=== PATIENT | female | born 1965 | race African-American/Black ===

== ENCOUNTER 2022-07-20 19:05 | Inpatient (IN) | payer OTHER, SELFPAY ==
--- NOTE | ~2022-07-20 | CT_ITS ---
EXAMINATION: CT head for stroke CLINICAL INFORMATION: Reason for Exam l Facial droop depression COMPARISON: None. TECHNIQUE: Contiguous axial imaging was performed from the skull base to vertex without intravenous contrast. Sagittal and coronal reformatted images were obtained. This CT examination was performed using dose optimization techniques as appropriate, variously including the following: * Automated exposure control * Adjustment of mA and/or kV according to patient size (this includes techniques or standardized protocols for targeted exams where dose is matched to indication/reason for exam; i.e. extremities or head) Use of iterative reconstruction technique DLP: 674 mGy-cm FINDINGS: There is asymmetric parenchymal hypodensity involving subcortical white matter in the right parietal lobe (series 5 image 25) without loss of barboza-white matter differentiation. Small hypodensity measuring near fluid density in the right central cassie is favored to be chronic and represent a chronic lacunar infarct. No acute osseous or soft tissue abnormality. The mastoid air cells and visualized portions of the paranasal sinuses are well aerated. There is no evidence of acute intracranial hemorrhage or territorial infarction. Bilateral basal ganglia mineralization. No abnormal mass effect or midline shift is seen. Barboza to white matter differentiation is well preserved. No extra-axial fluid collections are identified. No hydrocephalus. No significant volume loss. CT/CT head for stroke IMPRESSION: 1. No acute intracranial hemorrhage 2. Asymmetric hypodensity involving the right parietal subcortical white matter without loss of barboza-white matter differentiation. This may reflect an area of chronic microvascular ischemic white matter injury, although evolving acute ischemia is not completely excluded on the basis of this examination. If there is persistent concern for acute ischemia, consider further assessment with a noncontrast MRI of the brain 3. Small hypodensity in the central cassie likely represents a chronic lacunar infarct. Above impression was communicated to Dr. Alvarado on 07/20/2022 at 7:28 PM
--- NOTE | ~2022-07-20 | CT_ITS ---
EXAMINATION: CT ANGIOGRAM HEAD CT ANGIOGRAM NECK CLINICAL INFORMATION: Reason for Exam l facial droop COMPARISON: Earlier same day noncontrast head CT TECHNIQUE: Initial noncontrast golf cart maker imaging of the head and neck was performed. Comparison is made with noncontrast head CT from earlier today. Test bolus sequences followed by intravenous administration 70 mL of Omnipaque 350. Helical imaging was performed in the axial plane from the aortic arch to the skull vertex. Delayed postcontrast imaging of the head was also performed. The data was processed at the electronic technologist's workstation for generation of MIP sequences. Angled MIPs and volume rendered reformatted images were also generated at an offline 3D workstation. Stenoses are assessed in accordance with NASCET criteria unless otherwise indicated. DLP: 1348 mGy-cm This CT examination was performed using dose optimization techniques as appropriate, variously including the following: *Automated exposure control. *Adjustment of mA and/or kV according to patient size (this includes techniques or standardized protocols for targeted exams where dose is matched to indication/reason for exam; i.e. extremities or head). *Use of iterative reconstruction technique. FINDINGS: CT Head: Please refer to report from immediately preceding noncontrast head CT. No abnormal intracranial enhancement. CT Neck: There is enlargement of the thyroid gland with several subcentimeter hypodense nodules. The remaining cervical soft tissues are within normal limits. Moderate multilevel cervical spondylosis. 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 Maxilla and mandible are nearly edentulous with multiple periapical lucencies. CT Upper Chest: There is centrilobular and paraseptal pulmonary emphysema. The upper mediastinum is within normal limits. Neck CTA: Aortic Arch: Normal contour and caliber. Two vessel branching pattern of the arch with left common carotid artery arising from the brachiocephalic trunk. Great Vessel Origins: No significant stenosis of the branch origins. Right Common Carotid Artery: No focal stenosis or occlusion. Cervical Right Internal Carotid Artery: Mild calcific atherosclerotic disease of the carotid bulb and proximal internal carotid artery without flow-limiting stenosis. Left Common Carotid Artery: No focal stenosis or occlusion. Cervical Left Internal Carotid Artery: Normal opacification without focal stenosis or occlusion. Cervical Right Vertebral Artery: Mild to moderate short segment stenosis of the distal V1 segment. No other significant narrowing or occlusion. Cervical Left Vertebral Artery: Mild to moderate short segment stenosis of the distal V1 segment. No other significant narrowing or occlusion. Brain CTA: Intracranial Internal Carotid Arteries: Calcific atherosclerotic disease of the intracranial internal carotid arteries without occlusion or flow-limiting stenosis. Right Anterior Cerebral Artery: Normal A1 segment. Normal opacification of the distal MAURO segments. Left Anterior Cerebral Artery: Normal A1 segment. Normal opacification of the distal MAURO segments. Anterior Communicating Artery: Normal. Right Middle Cerebral Artery: Normal M1 segment of the MCA without focal stenosis or occlusion. Normal arborization of the distal segments. Left Middle Cerebral Artery: Normal M1 segment of the MCA without focal stenosis or occlusion. Normal arborization of the distal segments. Right Vertebral Artery: Normal V4 segment. Left Vertebral Artery: Normal V4 segment. Basilar Artery: Normal without focal stenosis or occlusion. Normal appearance of the proximal superior cerebellar arteries. Right Posterior Cerebral Artery: Normal P1 segment. Normal opacification of the distal LAND TITLE EXAMINER segments. Left Posterior Cerebral Artery: Normal P1 segment. Normal opacification of the distal LAND TITLE EXAMINER segments. Normal opacification of the superior sagittal, straight, transverse, and sigmoid sinuses. CT/CT angio head neck stroke IMPRESSION: 1. No arterial high grade stenosis or large vessel occlusion in the head or neck. 2. Thyromegaly containing several subcentimeter hypodense nodules. Correlate with thyroid function tests and thyroid ultrasound Impression #[address] Alvarado on 07/20/2022 at 7:38 PM
--- NOTE | 2022-07-20 19:09 | ECG_ITS ---
Test Reason : STROKE Blood Pressure : / mmHG Vent. Rate : 059 BPM Atrial Rate : 059 BPM P-R Int : 178 ms QRS Dur : 086 ms QT Int : 442 ms P-R-T Axes : 067 -10 041 degrees QTc Int : 437 ms Sinus bradycardia Possible Left atrial enlargement Septal infarct (cited on or before 22-OCT-2014) Abnormal ECG When compared with ECG of 22-OCT-2014 03:51, No significant changes seen Referred By: Sander Sesay Electronically Signed By:МАРИНА WALLACE MD
[2022-07-20 19:13] LABS: Prothrombin Time Whole Bld POC 13.1 sec (11.1-13.5); ~PT, ~INR - Anti Coag Clinic 1.1 (0.9-1.1)
[2022-07-20 19:15] VITALS: BP 182/108; PULSE 113; O2SAT 95
[2022-07-20 19:15] LABS: Glucose, Whole Blood 86 mg/dL (60-115)
[2022-07-20 19:22] LABS: MANUAL DIFF FLAG NO
[2022-07-20 19:24] LABS: Basophils Percent Auto 0.8 % (0-2); Eosinophils Absolute Auto 0.1 X10*3/uL (0.0-0.4); Eosinophils Percent Auto 1.3 % (0-4); Hematocrit 40.9 % (37.0-47.0); Hemoglobin 13.6 g/dl (12.0-16.0); Imm Gran Abs Auto 0.01 X10*3/uL (0.00-0.03); Imm Gran Pct Auto 0.3 % (0.0-0.4); Lymphocytes Absolute Auto 1.9 X10*3/uL (1.2-4.9); Lymphocytes Percent Auto 51.1 % (20-40); Mean Corpuscular HGB Conc 33.3 g/dl (31.0-35.0); Mean Corpuscular Hemoglobin 28.5 pg (27.0-33.0); Mean Corpuscular Volume 85.6 fL (80.0-98.0); Mean Platelet Volume 12.1 fL (9.4-12.3); Monocytes Absolute Auto 0.3 X10*3/uL (0.1-1.2); Monocytes Percent Auto 6.7 % (2-11); Neutrophils Absolute Auto 1.5 x10*3/uL (2.0-8.3); Neutrophils Percent Auto 39.8 % (45-73); Platelet Count 221 X10*3/uL (160-400); Red Blood Count 4.78 X10*6/uL (4.20-5.50); Red Cell Distribution Width 15.9 % (11.0-16.0); White Blood Count 3.7 X10*3/uL (4.8-10.8)
--- NOTE | 2022-07-20 19:26 | MHC.CARE ---
Pt was assessed by [facility] the community w/ dispo for section 12 bedsearch, however, pt began showing sx of stroke en route. Please consult CARE Team once medically cleared if indicated.
[2022-07-20 19:27] VITALS: BP 229/111; PULSE 62; RESP 14; O2SAT 100; BMI 20.5
[2022-07-20 19:31] LABS: Prothrombin Time 11.6 SEC (10.0-13.1)
[2022-07-20 19:33] LABS: Partial Thromboplastin Time 38.5 SEC (26.0-36.4)
[2022-07-20] MEDS: iohexoL 350 MG/ML 100 ML INFUS..BTL IV (19:33)
[2022-07-20 19:43] VITALS: BP 229/111; PULSE 56; RESP 14; O2SAT 100
[2022-07-20] MEDS: Labetalol HCL 100 MG/20 ML VIAL 20 MG IVPUSH (19:49)
--- NOTE | 2022-07-20 19:50 | ED_ITS ---
HPI - Neuro Symptoms/Deficit General Chief Complaint: Stroke Stated Complaint: STROKE ALERT Time Seen by Provider: 07/20/22 19:06 Source: patient and EMS Mode of arrival: EMS Limitations: no limitations History of Present Illness HPI Narrative: Patient history of hypertension, depression section on seen by in for SI with plan to stab herself on the way in EMS noted patient having trouble speaking with left-sided facial droop decreased mentation. Patient is very slow to respond, negative pronator test when arrived in the ER weakness seems to be more functional no recent fall no head injury Related Data Allergies Allergy/AdvReac Type Severity Reaction Status Date / Time amoxicillin [AMOXICILLIN] Allergy Unknown UNKNOWN Unverified 01/16/20 17:36 ampicillin [AMPICILLIN] Allergy Unknown UNKNOWN Unverified 01/16/20 17:36 erythromycin base Allergy Unknown UNKNOWN Unverified 01/16/20 17:36 [ERYTHROMYCIN BASE] penicillin G [PENICILLIN G] Allergy Unknown UNKNOWN Unverified 01/16/20 17:36 shellfish derived Allergy Unknown UNKNOWN Unverified 01/16/20 17:36 [SHELLFISH DERIVED] Sulfa (Sulfonamide Allergy Unknown UNKNOWN Unverified 01/16/20 17:36 Antibiotics) [SULFA (SULFONAMIDE ANTIBIOTICS)] sulfamethoxazole Allergy Unknown UNKNOWN Unverified 01/16/20 17:36 [From BACTRIM] trimethoprim [From BACTRIM] Allergy Unknown UNKNOWN Unverified 01/16/20 17:36 Review of Systems Review of Systems: Constitutional : No Weight loss, No Fever, No Chills ENT/Mouth : No sore throat, No Rhinorrhea Eyes: No Eye Pain, No Swelling Cardiovascular : No Chest Pain, no palpitations Respiratory : No Cough, No Sputum, no shortness of breath Gastrointestinal : no Nausea, No Vomiting, No Diarrhea, No abdominal Pain, no black stools Genitourinary : No Dysuria, No Urinary Frequency Musculoskeletal : No joint pain, No Myalgias, No Joint Swelling Skin : No Skin Lesions, No rash Neuro : No Weakness, No Numbness, No Dizziness, No Headache Psych : No Anxiety/Panic,++ Depression Heme/Lymph: No Bruising, No Lymphadenopathy Endocrine : No Polyuria, No Polydipsia All other systems reviewed and are negative PMFSH Social History Social History Alcohol intake: current Alcohol intake frequency: a few times a week Smoked in Last 30 Days: Yes Use of substances other than those prescribed or required for medical reasons: Yes Advance Directives: No Advance Directives Information Provided: No Patient : No Physical Exam Vital Signs: Vital Signs: Last Vital Signs Temp 97.5 F 07/21/22 00:08 Pulse 44 L 07/21/22 01:02 Resp 9 L 07/21/22 01:02 BP 155/80 H 07/21/22 01:02 Pulse Ox 98 07/21/22 01:02 O2 Del Method 07/21/22 01:02 BMI result Body Mass Index 20.5 Appearance: Alert. Oriented X3. No acute distress. Slow to respond Eyes: PERRLA, No Nystagmus ENT: Pharynx normal. Oral Mucosa moist Neck: Normal inspection. Neck supple. CVS: Normal heart rate and rhythm. Pulses normal. Respiratory: No respiratory distress. Equal air entry bilateral, no wheezing/rales/rhonchi Abdomen: Soft and nontender. Bowel sounds are present, no mass palpable, no CVA tenderness Skin: Skin warm and dry. Normal skin color. Normal skin turgor. Extremities: No lower extremity edema. No calf tenderness Neuro: Oriented X 3. No motor deficit. No sensory deficit.No cerebellar signs , cranial nerves II-XII intact no pronator drift, functional left-sided weakness Medications Administered Discontinued Medications Generic Name Dose Route Start Last Admin Trade Name Christophq PRN Reason Stop Dose Admin Amlodipine Besylate 10 mg 07/21/22 00:04 07/21/22 00:10 Amlodipine Besylate 10 Mg Tablet PO 07/21/22 00:05 10 mg ONCE ONE Administration Protocol Iohexol 100 ml 07/20/22 19:33 07/20/22 19:33 Iohexol 350 Mg/Ml 100 Ml Infus..Btl IV 07/20/22 19:34 70 ml ONCE ONE Administration Labetalol HCl 20 mg 07/20/22 19:44 07/20/22 19:49 Labetalol Hcl 100 Mg/20 Ml Vial IVPUSH 07/20/22 19:45 20 mg ONCE ONE Administration Medical Decision Making Medical Decision Making [facility] Narrative: Patient has significant depression with SI Section 12 for placement noticed to have high blood pressure as she missed her clonidine today on arrival blood pressure was 229/111 urine drug screen positive for cocaine and marijuana CT scan of the head and CT head neck negative for CVA. Patient almost back to normal will clear medically Differential Diagnosis Differential Diagnoses: The differential diagnosis associated with the presentation includes CVA/functional/substance abuse Lab Data MDM Lab Attestation statement: I reviewed the patient's lab results. 07/20/22 19:19 07/20/22 19:19 Labs: Lab Results 07/20/22 07/20/22 07/20/22 Range/Units 19:09 19:10 19:19 WBC 3.7 L (4.8-10.8) X10*3/uL RBC 4.78 (4.20-5.50) X10*6/uL Hgb 13.6 (12.0-16.0) g/dl Hct 40.9 (37.0-47.0) % MCV 85.6 (80.0-98.0) fL MCH 28.5 (27.0-33.0) pg MCHC 33.3 (31.0-35.0) g/dl RDW 15.9 (11.0-16.0) % Plt Count 221 (160-400) X10*3/uL MPV 12.1 (9.4-12.3) fL Immature Gran % (Auto) 0.3 (0.0-0.4) % Neut % (Auto) 39.8 L (45-73) % Lymph % (Auto) 51.1 H (20-40) % Barrow % (Auto) 6.7 (2-11) % Eos % (Auto) 1.3 (0-4) % Baso % (Auto) 0.8 (0-2) % Lymph # (Auto) 1.9 (1.2-4.9) X10*3/uL Barrow # (Auto) 0.3 (0.1-1.2) X10*3/uL Eos # (Auto) 0.1 (0.0-0.4) X10*3/uL Baso # (Auto) 0.0 (0.0-0.2) X10*3/uL Abs Immat Gran (auto) 0.01 (0.00-0.03) X10*3/uL Absolute Neuts (auto) 1.5 L (2.0-8.3) x10*3/uL Absolute Nucleated RBC 0.000 (0.0-0.012) X10*3/uL Nucleated RBC % (auto) 0.0 (0.0-0.2) /100WBC PT (10.0-13.1) SEC Whole Blood PT 13.1 (11.1-13.5) sec INR (0.9-1.1) Whole Blood INR 1.1 (0.9-1.1) APTT (26.0-36.4) SEC Sodium (135-145) mmol/L Potassium (3.3-5.1) mmol/L Chloride (96-108) mmol/L Carbon Dioxide (22-29) mmol/L Anion Gap (12-20) BUN (9-16) mg/dL Creatinine (0.5-1.4) mg/dL Estim Creat Clear Calc Estimated GFR POC Glucose 86 (60-115) mg/dL Random Glucose (60-115) mg/dL Calcium (8.4-10.2) mg/dL Total Creatine Kinase (26-140) U/L Troponin I High Sens (<3.5-17.0) ng/L Urine Color Urine Appearance Urine pH (5.0-9.0) Ur Specific [place] (1.005-1.025) Urine Protein (Neg-Trace) mg/dL Urine Glucose (UA) (Negative) mg/dL Urine Ketones (Negative) mg/dL Urine Blood (Negative) Urine Nitrite (Negative) Ur Leukocyte Esterase (Negative) Urine Opiates Screen (Not Detect) Urine Fentanyl Screen (Not Detect) Ur Barbiturates Screen (Not Detect) Ur Phencyclidine Scrn (Not Detect) Ur Amphetamines Screen (Not Detect) U Benzodiazepines Scrn (Not Detect) Urine Cocaine Screen (Not Detect) U Marijuana (THC) Screen (Not Detect) 07/20/22 07/20/22 07/20/22 Range/Units 19:19 19:19 20:07 WBC (4.8-10.8) X10*3/uL RBC (4.20-5.50) X10*6/uL Hgb (12.0-16.0) g/dl Hct (37.0-47.0) % MCV (80.0-98.0) fL MCH (27.0-33.0) pg MCHC (31.0-35.0) g/dl RDW (11.0-16.0) % Plt Count (160-400) X10*3/uL MPV (9.4-12.3) fL Immature Gran % (Auto) (0.0-0.4) % Neut % (Auto) (45-73) % Lymph % (Auto) (20-40) % Barrow % (Auto) (2-11) % Eos % (Auto) (0-4) % Baso % (Auto) (0-2) % Lymph # (Auto) (1.2-4.9) X10*3/uL Barrow # (Auto) (0.1-1.2) X10*3/uL Eos # (Auto) (0.0-0.4) X10*3/uL Baso # (Auto) (0.0-0.2) X10*3/uL Abs Immat Gran (auto) (0.00-0.03) X10*3/uL Absolute Neuts (auto) (2.0-8.3) x10*3/uL Absolute Nucleated RBC (0.0-0.012) X10*3/uL Nucleated RBC % (auto) (0.0-0.2) /100WBC PT 11.6 (10.0-13.1) SEC Whole Blood PT (11.1-13.5) sec INR 1.0 (0.9-1.1) Whole Blood INR (0.9-1.1) APTT 38.5 H (26.0-36.4) SEC Sodium (135-145) mmol/L Potassium (3.3-5.1) mmol/L Chloride (96-108) mmol/L Carbon Dioxide (22-29) mmol/L Anion Gap (12-20) BUN (9-16) mg/dL Creatinine (0.5-1.4) mg/dL Estim Creat Clear Calc Estimated GFR POC Glucose (60-115) mg/dL Random Glucose (60-115) mg/dL Calcium (8.4-10.2) mg/dL Total Creatine Kinase (26-140) U/L Troponin I High Sens < 3.5 (<3.5-17.0) ng/L Urine Color Yellow Urine Appearance Clear Urine pH 6.5 (5.0-9.0) Ur Specific [place] >= 1.030 H (1.005-1.025) Urine Protein Negative (Neg-Trace) mg/dL Urine Glucose (UA) Negative (Negative) mg/dL Urine Ketones Negative (Negative) mg/dL Urine Blood Negative (Negative) Urine Nitrite Negative (Negative) Ur Leukocyte Esterase Negative (Negative) Urine Opiates Screen (Not Detect) Urine Fentanyl Screen (Not Detect) Ur Barbiturates Screen (Not Detect) Ur Phencyclidine Scrn (Not Detect) Ur Amphetamines Screen (Not Detect) U Benzodiazepines Scrn (Not Detect) Urine Cocaine Screen (Not Detect) U Marijuana (THC) Screen (Not Detect) 07/20/22 07/20/22 Range/Units 20:07 23:21 WBC (4.8-10.8) X10*3/uL RBC (4.20-5.50) X10*6/uL Hgb (12.0-16.0) g/dl Hct (37.0-47.0) % MCV (80.0-98.0) fL MCH (27.0-33.0) pg MCHC (31.0-35.0) g/dl RDW (11.0-16.0) % Plt Count (160-400) X10*3/uL MPV (9.4-12.3) fL Immature Gran % (Auto) (0.0-0.4) % Neut % (Auto) (45-73) % Lymph % (Auto) (20-40) % Barrow % (Auto) (2-11) % Eos % (Auto) (0-4) % Baso % (Auto) (0-2) % Lymph # (Auto) (1.2-4.9) X10*3/uL Barrow # (Auto) (0.1-1.2) X10*3/uL Eos # (Auto) (0.0-0.4) X10*3/uL Baso # (Auto) (0.0-0.2) X10*3/uL Abs Immat Gran (auto) (0.00-0.03) X10*3/uL Absolute Neuts (auto) (2.0-8.3) x10*3/uL Absolute Nucleated RBC (0.0-0.012) X10*3/uL Nucleated RBC % (auto) (0.0-0.2) /100WBC PT (10.0-13.1) SEC Whole Blood PT (11.1-13.5) sec INR (0.9-1.1) Whole Blood INR (0.9-1.1) APTT (26.0-36.4) SEC Sodium 142 (135-145) mmol/L Potassium 4.4 (3.3-5.1) mmol/L Chloride 107 (96-108) mmol/L Carbon Dioxide 26 (22-29) mmol/L Anion Gap 13 (12-20) BUN 10 (9-16) mg/dL Creatinine 1.01 (0.5-1.4) mg/dL Estim Creat Clear Calc 57.3 Estimated GFR 57 POC Glucose (60-115) mg/dL Random Glucose 90 (60-115) mg/dL Calcium 9.5 (8.4-10.2) mg/dL Total Creatine Kinase 100 (26-140) U/L Troponin I High Sens (<3.5-17.0) ng/L Urine Color Urine Appearance Urine pH (5.0-9.0) Ur Specific [place] (1.005-1.025) Urine Protein (Neg-Trace) mg/dL Urine Glucose (UA) (Negative) mg/dL Urine Ketones (Negative) mg/dL Urine Blood (Negative) Urine Nitrite (Negative) Ur Leukocyte Esterase (Negative) Urine Opiates Screen Not Detected (Not Detect) Urine Fentanyl Screen Not Detected (Not Detect) Ur Barbiturates Screen Not Detected (Not Detect) Ur Phencyclidine Scrn Not Detected (Not Detect) Ur Amphetamines Screen Not Detected (Not Detect) U Benzodiazepines Scrn Not Detected (Not Detect) Urine Cocaine Screen POSITIVE H (Not Detect) U Marijuana (THC) Screen POSITIVE H (Not Detect) Independent Interpretation I performed an independent interpretation of an: EKG Interpretation: Sinus bradycardia heart rate 59 beats per minute abrasion wire and no acute ST-T no acute ischemia NIH Stroke Scale Internal: Initial- Upon Arrival Level of Consciousness: Alert Level of Consciousness Questions: Answers both questions correctly Level of Consciousness Commands: Performs both tasks correctly Best Gaze: Normal Visual: No visual loss Facial Palsy: Normal Motor Arm (Right): No drift Motor Arm (Left): No drift Motor Leg (Right): No drift Motor Leg (Left): No drift Limb Ataxia: Absent Sensory: Normal Best Language: No aphasia Dysarthia: Normal Extinction and Inattention: No abnormality Score: 0 Discharge Plan Discharge Clinical Impression: Depression with suicidal ideation, Cocaine abuse, Hypertension Patient Disposition: Still a Patient
[2022-07-20 19:51] LABS: Troponin-I High Sensitivity < 3.5 ng/L (<3.5-17.0)
--- NOTE | 2022-07-20 19:58 | PC.NURSE ---
Pt presente to ER via EMS. Pt was sectioned on scene by [facility] for SI with a plan to stab herself. Pt has a history of self harm. EMS noted pt was having troublr speaking around 1855. Pt developed a facial droop, drooling, and left sided weakness. Pt was brought into ER awake but drooling with mumbled speech. An IV was established, labs were drawn, and pt was taken to CT. Upon getting into room 4, EKG was obtained, and pt was changed over into [facility] clothing and security was at the bedside for changeover. Dr Alvarado was at the bedside for a swallow eval which pt passed. Pt was able to swallow water without complications. Pt BP noted to be elevated, labetalol ordered and given. A sitter is at the [facility] due to SI. Pt waiting to be medically cleared at this time.
[2022-07-20 20:00] VITALS: BP 199/97; PULSE 56; RESP 16; O2SAT 100
[2022-07-20 20:00] LABS: Stroke Lab Use COMPLETE
[2022-07-20 20:14] LABS: Appearance Urine Clear; Color Urine Yellow; Glucose Urine UA Negative (Negative); Leukocyte Esterase Urine Negative (Negative); Nitrite Urine Negative (Negative); PH 6.5 (5.0-9.0); Specific Gravity - Urine >= 1.030 (1.005-1.025); Urine Blood Negative (Negative); Urine Ketones Negative (Negative); Urine Protein Negative (Neg-Trace)
[2022-07-20 20:24] LABS: Amphetamine Screen Urine Not Detected (Not Detect); Barbiturates, Urine Not Detected (Not Detect); Benzodiazepines Screen Urine Not Detected (Not Detect); Cannabinoid Screen Urine POSITIVE (Not Detect); Cocaine Screen Urine POSITIVE (Not Detect); Fentanyl, urine Not Detected (Not Detect); Opiate Screen Urine Not Detected (Not Detect); Phencyclidine Screen Urine Not Detected (Not Detect)
[2022-07-20 21:46] VITALS: BP 169/82; PULSE 48; RESP 16; O2SAT 97
[2022-07-20 23:14] VITALS: BP 170/88; PULSE 49; RESP 15; O2SAT 96
--- NOTE | 2022-07-20 23:38 | PC.NURSE ---
pt a&o, reports she is feeling SI, BH came to her home and sectioned. Pt 1:1, pt change into hospital attire.
[2022-07-21 00:08] VITALS: BP 203/88; PULSE 48; RESP 15; TEMP 36.4; O2SAT 99
[2022-07-21] MEDS: amLODIPine Besylate 10 MG TABLET PO (00:10)
--- NOTE | 2022-07-21 00:13 | PC.NURSE ---
Pt medicated per Mar, Will continue to monitor.
[2022-07-21 00:15] LABS: Anion Gap 13 (12-20); Blood Urea Nitrogen 10 mg/dL (9-16); Calcium 9.5 mg/dL (8.4-10.2); Carbon Dioxide 26 mmol/L (22-29); Chloride 107 mmol/L (96-108); Creatinine Clr Calc Pharmacy 57.3; Estimated Glomerular Filt Rate 57; Glucose Random 90 mg/dL (60-115); Potassium 4.4 mmol/L (3.3-5.1); Sodium 142 mmol/L (135-145)
--- NOTE | 2022-07-21 00:44 | PC.NURSE ---
Pt is resting in bed, cooperative, no sign of distress. Will continue monitor.
[2022-07-21 01:02] VITALS: BP 155/80; PULSE 44; RESP 9; O2SAT 98
[2022-07-21 02:07] VITALS: BP 148/84; PULSE 45; RESP 10; O2SAT 98
--- NOTE | 2022-07-21 06:48 | PC.NURSE ---
pt sleeping no sign of distress, Will continue to monitor.
--- NOTE | 2022-07-21 06:53 | MHC.EDTECH ---
Pt vital signs documented on downtime form placed in pt chart
--- NOTE | 2022-07-21 08:45 | PC.NURSE ---
Pt appears to be sleeping in bed, resting quietly offering no complaints. Patient observer at bedside.
--- NOTE | 2022-07-21 12:11 | PC.NURSE ---
RN-RN report given to POD, pt currently sleeping had reported h/a to sitter, tylenol ordered by provider.
[2022-07-21] MEDS: Acetaminophen 325 MG TABLET 975 MG PO (15:00)
[2022-07-21 15:01] VITALS: BP 167/80; PULSE 47; RESP 15; TEMP 36.5; O2SAT 96
[2022-07-21 22:04] VITALS: BP 176/82; PULSE 54; RESP 17; TEMP 36.8; O2SAT 99
[2022-07-21] MEDS: lisinopriL 40 MG TABLET PO (22:25)
[2022-07-21] MEDS: amLODIPine Besylate 5 MG TABLET PO (22:25)
[2022-07-21] MEDS: Nicotine Polacrilex 2 MG GUM BUCCAL (22:26)
[2022-07-21 23:25] LABS: COVID-19 Test Negative (Negative); IDNOW Serial# 55D5AD1C
[2022-07-21 23:40] VITALS: BP 180/100; PULSE 50; RESP 18; TEMP 36.1; O2SAT 100
[2022-07-22] MEDS: cloNIDine HCL 0.1 MG TABLET PO (00:19)
[2022-07-22 00:35] VITALS: BP 175/90
[2022-07-22] MEDS: LORazepam 0.5 MG TABLET PO ×2 (00:44→08:43)
--- NOTE | 2022-07-22 00:45 | PC.NURSE ---
PT BP upon admission at 2340 180/100, MD Lynn notified. Clonadine 0.5 mg given. BP recheck 175/90.
--- NOTE | 2022-07-22 01:32 | PC.ADMIT ---
PT is a 56 year old female, arrived to unit on CV at 2335 from [facility]. PT was assessed by [facility], due to PT calling and saying, 'I have knives and a razor, I am going to stab myself.' Then PT hung up, on well being check PT was not located and [facility] put PT on Crisis Alert, PT was found at a liquor store and had taken an unknown amount of klonopin. When taken to [facility] office for assessment, razors were removed from PT's mouth. PT endorsed a plan to stab self at that time. PT calm and cooperative during admission assessment, VS except BP elevated 180/100, notified and PT given 0.5mg of clonadine. BP trending down 175/90. Tox screen positive for THC and cocaine. PT has medical hx that includes asthma, HTN, stroke, and ulcer. PT has hx of prior IPLOCs. PT denied SI/HI, AH/VH and PT feels safe on unit. PT placed on 15 minute safety checks and is currently resting in bed with eyes closed.
[2022-07-22] MEDS: lisinopriL 40 MG TABLET PO (08:43)
[2022-07-22 08:57] VITALS: BP 171/87; PULSE 46; RESP 18; TEMP 35.9; O2SAT 99
[2022-07-22 09:46] LABS: MANUAL DIFF FLAG NO
[2022-07-22 09:48] LABS: Basophils Percent Auto 0.6 % (0-2); Eosinophils Absolute Auto 0.2 X10*3/uL (0.0-0.4); Eosinophils Percent Auto 4.7 % (0-4); Hematocrit 36.2 % (37.0-47.0); Lymphocytes Absolute Auto 1.7 X10*3/uL (1.2-4.9); Mean Corpuscular HGB Conc 33.1 g/dl (31.0-35.0); Mean Corpuscular Hemoglobin 28.8 pg (27.0-33.0); Mean Platelet Volume 12.4 fL (9.4-12.3); Monocytes Absolute Auto 0.3 X10*3/uL (0.1-1.2); Monocytes Percent Auto 8.7 % (2-11); Platelet Count 186 X10*3/uL (160-400); Red Blood Count 4.16 X10*6/uL (4.20-5.50); Red Cell Distribution Width 15.9 % (11.0-16.0); White Blood Count 3.2 X10*3/uL (4.8-10.8)
[2022-07-22 10:17] LABS: Alanine Aminotransferase 14 U/L (0-31); Albumin Level 3.4 g/dL (3.5-5.0); Alkaline Phosphatase 87 U/L (39-117); Anion Gap 13 (12-20); Aspartate Amino Transferase 15 U/L (5-31); Bilirubin Total 0.3 mg/dL (0.0-1.0); Blood Urea Nitrogen 13 mg/dL (9-16); Calcium 8.9 mg/dL (8.4-10.2); Carbon Dioxide 25 mmol/L (22-29); Chloride 107 mmol/L (96-108); Cholesterol 171 mg/dL; Creatinine Clr Calc Pharmacy 63.6; Estimated Glomerular Filt Rate > 60; Glucose Fasting 121 mg/dL (60-99); HDL Cholesterol 55 mg/dL; LDL Cholesterol Calculated 104 mg/dl; Potassium 4.4 mmol/L (3.3-5.1); Sodium 141 mmol/L (135-145); Total Protein 6.6 g/dL (6.5-8.0); Triglycerides 61 mg/dL
[2022-07-22 10:48] LABS: Folate 10.3 ng/mL (> or = 4.0); Free T4 (Free Thyroxine) 0.84 ng/dL (0.71-1.85); Thyroid Stimulating Hormone 0.64 uIU/mL (0.32-4.0); Vitamin B12 529 pg/mL (200-900)
[2022-07-22] MEDS: Nicotine Polacrilex 2 MG GUM 4 MG BUCCAL (10:59)
[2022-07-22] MEDS: hydrOXYzine HCL 25 MG TABLET PO (12:22)
[2022-07-22 13:00] VITALS: BP 159/89
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
[2022-07-22] MEDS: Nicotine 21 MG PATCH.TD24 TRANSDERMA (16:31)
[2022-07-22 19:45] VITALS: BP 160/83; PULSE 68; RESP 14; TEMP 37.1
[2022-07-22] MEDS: clonazePAM 0.5 MG TABLET PO (19:48)
[2022-07-22] MEDS: cloNIDine HCL 0.2 MG TABLET PO (19:48)
[2022-07-23] MEDS: diphenhydrAMINE HCL 25 MG CAPSULE PO ×3 (02:28→13:37)
[2022-07-23 02:29] VITALS: BP 136/66; PULSE 85; RESP 14; TEMP 36.4
--- NOTE | 2022-07-23 06:45 | PC.NURSE ---
Patient requesting med for anxiety. Rates anxiety 12/08, deppression 10/08. Teary eyed, explains poor night's sleep may be contributing to anxiety/depression. Benedryl administered per order.
[2022-07-23] MEDS: lisinopriL 40 MG TABLET PO (08:42)
[2022-07-23] MEDS: clonazePAM 0.5 MG TABLET PO ×2 (08:42→22:14)
[2022-07-23] MEDS: cloNIDine HCL 0.2 MG TABLET PO ×2 (08:42→22:14)
[2022-07-23 08:44] VITALS: BP 169/81; PULSE 54; RESP 14; TEMP 36.5; O2SAT 100
[2022-07-23] MEDS: Nicotine Polacrilex 2 MG GUM 4 MG BUCCAL ×2 (13:37→18:29)
[2022-07-23 13:49] VITALS: BP 143/64; PULSE 50; RESP 14; TEMP 36.6; O2SAT 99
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
[2022-07-23 18:00] VITALS: BP 163/91; PULSE 72; TEMP 36.1; O2SAT 96
[2022-07-23] MEDS: hydrOXYzine HCL 25 MG TABLET PO (18:29)
[2022-07-24 09:20] VITALS: BP 155/79; PULSE 67; RESP 16; TEMP 36.4; O2SAT 100
[2022-07-24] MEDS: clonazePAM 0.5 MG TABLET PO ×3 (09:23→20:52)
[2022-07-24] MEDS: Nicotine 21 MG PATCH.TD24 TRANSDERMA (09:23)
[2022-07-24] MEDS: lisinopriL 40 MG TABLET PO (09:23)
[2022-07-24] MEDS: cloNIDine HCL 0.2 MG TABLET PO ×2 (09:24→20:51)
[2022-07-24] MEDS: hydrOXYzine HCL 25 MG TABLET PO ×2 (09:59→16:56)
[2022-07-24] MEDS: Nicotine Polacrilex 2 MG GUM 4 MG BUCCAL ×3 (09:59→20:58)
[2022-07-24] MEDS: Carbamide Peroxide 6.5% Otic 15 ML DRPBTL 5 DROP EAR-BOTH ×2 (11:46→20:56)
[2022-07-24] MEDS: Fluticasone Propionate Nasal 16 GM SPRAY 1 SPRAY NOSTRIL-B ×2 (11:46→20:56)
[2022-07-24 13:00] VITALS: BP 152/70; PULSE 55; RESP 14; TEMP 36.4; O2SAT 99
[2022-07-24] MEDS: diphenhydrAMINE HCL 25 MG CAPSULE 50 MG PO ×2 (13:22→20:52)
[2022-07-24 18:00] VITALS: BP 121/66; PULSE 80; TEMP 36.7; O2SAT 98
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
--- NOTE | 2022-07-24 19:16 | PC.NURSE ---
Patient asked for increase in Klonopin since she says she normally takes Klonopin1 mg po bid x 10 years. Note from Gautam santoyo, noted patient had asked and there was a thought to utilize Lamictal or Trileptal to manage symptoms. For now there is a one time order for an additional Klonopin 05 mg. Review in the a.m.
[2022-07-24 20:55] VITALS: BP 180/93; PULSE 70; TEMP 36.8; O2SAT 99
[2022-07-24 22:20] VITALS: BP 155/74; PULSE 63
--- NOTE | 2022-07-24 23:54 | PC.NURSE ---
Patient signed 3 day notice 07/24/22 which is up 07/27/22.
[2022-07-25] MEDS: hydrOXYzine HCL 25 MG TABLET PO ×2 (01:03→16:51)
[2022-07-25] MEDS: Nicotine Polacrilex 2 MG GUM 4 MG BUCCAL ×5 (01:06→20:44)
[2022-07-25 08:09] VITALS: BP 159/83; PULSE 65; RESP 16; TEMP 36.2; O2SAT 98
[2022-07-25] MEDS: clonazePAM 0.5 MG TABLET PO ×2 (08:45→20:21)
[2022-07-25] MEDS: lisinopriL 40 MG TABLET PO (08:45)
[2022-07-25] MEDS: Fluticasone Propionate Nasal 16 GM SPRAY 1 SPRAY NOSTRIL-B (08:45)
[2022-07-25] MEDS: cloNIDine HCL 0.2 MG TABLET PO ×2 (08:45→20:21)
[2022-07-25] MEDS: Carbamide Peroxide 6.5% Otic 15 ML DRPBTL 5 DROP EAR-BOTH ×2 (08:46→20:22)
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
[2022-07-25 13:00] VITALS: BP 152/85; PULSE 86; RESP 16; TEMP 37; O2SAT 98
[2022-07-25] MEDS: diphenhydrAMINE HCL 25 MG CAPSULE 50 MG PO (17:48)
[2022-07-25 18:00] VITALS: BP 155/85; PULSE 77; RESP 14; TEMP 36.3; O2SAT 97
[2022-07-25 19:42] LABS: Glucose, Whole Blood 110 mg/dL (60-115)
[2022-07-26] MEDS: Nicotine Polacrilex 2 MG GUM 4 MG BUCCAL ×2 (05:37→08:32)
[2022-07-26] MEDS: clonazePAM 0.5 MG TABLET PO (08:12)
[2022-07-26] MEDS: lisinopriL 40 MG TABLET PO (08:12)
[2022-07-26] MEDS: cloNIDine HCL 0.2 MG TABLET PO (08:12)
[2022-07-26 08:13] VITALS: BP 181/96; PULSE 63; RESP 16; TEMP 36.8; O2SAT 99
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
== END 2022-07-26 10:23 | disposition home or self-care (01) | DRG 882 ==
LOC: HO.ED 07-21 12:29 → HO.PM5 07-21 23:17
PROVIDERS: Admitting Provider Psychiatry & Neurology Psychiatry; Emergency Provider Internal Medicine; Visit Provider Psychiatry & Neurology Psychiatry
DX: F43.25 Adjustment disorder with mixed disturbance of emotions and conduct (principal); R45.851 Suicidal ideations; F14.10 Cocaine abuse, uncomplicated; F43.10 Post-traumatic stress disorder, unspecified; F17.210 Nicotine dependence, cigarettes, uncomplicated; Z20.822 Contact with and (suspected) exposure to COVID-19; Z71.6 Tobacco abuse counseling; Z88.0 Allergy status to penicillin; Z88.2 Allergy status to sulfonamides; Z79.51 Long term (current) use of inhaled steroids; Z79.899 Other long term (current) drug therapy
CPT/HCPCS: 36415; 70450; 70496; 70498; 80048; 80053; 80061; 80307; 81003; 82550; 82607; 82746; 82947; 84439; 84443; 84484; 85025; 85610; 85730; 87635; 93005; 99285; Q9967

== ENCOUNTER 2023-02-14 23:20 | Emergency (ER) | payer OTHER, SELFPAY ==
--- NOTE | 2023-02-14 23:41 | ED.GENADULT ---
HPI - General Adult General Chief complaint: Abdominal Pain Stated complaint: VOMITING, ABD PAIN Time Seen by Provider: 02/14/23 23:41 Source: patient and RN notes reviewed Mode of arrival: ambulatory Limitations: no limitations History of Present Illness HPI narrative: This is a 57-year-old female, with a past medical history of hypertension, asthma, bipolar disorder, depression, anxiety, PTSD, and substance abuse, presenting to the emergency department from [facility] under [address], with complaints of nausea, vomiting, diarrhea starting today. Patient reports that she was seen at [facility] 4 days ago for this same symptoms. She states that her workup ther was normal, was told that she had a virus. Patient reports that her symptoms improved until she ate lunch today and developed nausea and vomiting shortly after. She has been unable to tolerate p.o. she was given Zofran IM and immodium at [facility] which provided her without any relief. Pt denies any recent ABX use. No other complaints or concerns at this time. MD complaint: Nausea vomiting diarrhea Onset (ago): day(s) Radiation: non-radiation Severity: mild Quality: aching Pain Consistency: constant Relieving factors: none Exacerbating factors: none Associated symptoms: loss of appetite and nausea/vomiting Treatments prior to arrival: none Related Data Previous Rx's Medication Instructions Recorded amlodipine 5 mg tablet 5 mg PO DAILY 30 days #30 tabs 07/26/22 clonazepam 0.5 mg tablet 0.5 mg PO BID 30 days #60 tabs 07/26/22 clonidine HCl 0.2 mg tablet 0.2 mg PO BID 30 days #60 tabs 07/26/22 diphenhydramine HCl 25 mg tablet 25 mg PO TID PRN insomnia/anxiety 07/26/22 30 days #90 tabs docusate sodium 100 mg capsule 100 mg PO BID #0 caps 07/26/22 fluticasone propionate 50 1 spray intranasal BID 30 days #16 07/26/22 mcg/actuation nasal grams spray,suspension lisinopril 40 mg tablet 40 mg PO DAILY 30 days #30 tabs 07/26/22 nicotine (polacrilex) 4 mg buccal 4 mg buccal Q2-4H PRN nicotine 07/26/22 lozenge cravings 30 days #108 ea Allergies Allergy/AdvReac Type Severity Reaction Status Date / Time amoxicillin [AMOXICILLIN] Allergy Unknown UNKNOWN Unverified 01/16/20 17:36 ampicillin [AMPICILLIN] Allergy Unknown UNKNOWN Unverified 01/16/20 17:36 erythromycin base Allergy Unknown UNKNOWN Unverified 01/16/20 17:36 [ERYTHROMYCIN BASE] penicillin G [PENICILLIN G] Allergy Unknown UNKNOWN Unverified 01/16/20 17:36 shellfish derived Allergy Unknown UNKNOWN Unverified 01/16/20 17:36 [SHELLFISH DERIVED] Sulfa (Sulfonamide Allergy Unknown UNKNOWN Unverified 01/16/20 17:36 Antibiotics) [SULFA (SULFONAMIDE ANTIBIOTICS)] sulfamethoxazole Allergy Unknown UNKNOWN Unverified 01/16/20 17:36 [From BACTRIM] trimethoprim [From BACTRIM] Allergy Unknown UNKNOWN Unverified 01/16/20 17:36 Review of Systems Review of Systems: Yes all other systems are reviewed and are negative Constitutional: Constitutional: Reports as per [facility] Past Medical History Medical History (Updated 02/16/23 @ 00:01 by Background Chaitanya) PTSD (post-traumatic stress disorder) Cocaine use disorder Social History Social History Household Members: Friend(s) Housing: Apartment Do you presently have visiting nurse or other home services: No Alcohol intake: current Alcohol intake frequency: a few times a week Patient Tobacco Use Status: Current everyday Tobacco user Tobacco use type: Cigarette Cigarette Packs Per Day: 1 Cigarettes Per Day: 20.0 e-Cigarette/Vaping Use: Currently Using Substance Use Type: Marijuana Advance Directives: No Advance Directives Information Provided: No service: No Sexual orientation: Straight/Heterosexual Physical Exam ED Vital Signs: Vital Signs - 24 hr 02/14/23 23:42 Temperature 98.1 F Pulse Rate 72 Respiratory Rate 16 Blood Pressure 160/79 H Pulse Oximetry 98 Oxygen Delivery Method Room Air BMI result Body Mass Index 21.4 Const General: cooperative, comfortable and no acute distress Orientation/consciousness: patient oriented x3 Limitations: no limitations HENMT Other: Dry mucous membranes. Head: Yes normal to inspection, Yes normocephalic and Yes atraumatic Ears: hearing grossly normal bilaterally General nose exam: Normal external nose present Face and sinus: Yes normal facial exam Mouth: Normal oral and palatal mucosa present, oropharynx normal and moist mucous membranes Throat: Yes posterior oropharynx normal Eyes General: appearance normal, both eyes and all related structures Eyelids: Yes eyelids normal Conjunctivae: conjunctivae normal Sclerae: sclerae normal Pupils: Equal, round and reactive pupils present EOM: EOMs intact bilaterally Neck Neck: Yes normal visual inspection, Yes full ROM and Yes no lymphadenopathy Lymphatic: no lymphadenopathy noted Chest Chest palpation & inspection: normal inspection of the chest Resp Effort & Inspection: normal respiratory effort and able to speak in complete sentences Auscultation: clear to auscultation bilaterally, no crackles, no rales, no rhonchi and no wheezes Cardio Rate: regular rate Rhythm: regular rhythm Heart sounds: S1 normal heart sound present and S2 normal heart sound present GI Other: Abdomen is soft, hyperactive bowel sounds present. Tenderness to palpation diffusely throughout entire abdomen. No rebound. Inspection: Yes normal to inspection Skin General skin exam: no rashes or lesions noted Trauma: no lacerations or abrasions Wounds: no wounds Neuro General: patient oriented x3 and moves all extremities Cranial nerves: Yes Equal, round and reactive pupils present Extrem General: Yes normal to inspection Right upper extremity: normal to inspection Left upper extremity: normal to inspection Right lower extremity: normal to inspection Left lower extremity: normal to inspection Course Course Course Narrative: tolerated PO stable for DC Reevaluation(s) Reevaluation #1: Patient re-evaluated, nausea has resolved, still complaining of continued abdominal pain, still receiving IV fluids, abdomen is still soft, vital signs within normal limits. Patient has had multiple bouts of diarrhea, nonbloody. Patient has no leukocytosis, stable H&H, chemistry within normal limits. ALT mildly elevated at 51, unlikely contributing to her symptoms. Tox positive for cocaine. Patient had a normal CT scan of her abdomen at [facility] on February 10, 2023 with similar presentation. Vital signs have been stable throughout her entire stay. Patient is afebrile, nontoxic-appearing. Given recent CT scan on 02/10, and improvement of symptoms after receiving IV fluids, Reglan and Benadryl, and normal labs. Symptoms likely due to gastroenteritis/viral etiology. Pt currently sleeping in ER stretcher under no acute distress. Given sign out to my colleague, Dr. Krishnamurthy pending PO challenge and completion of IV fluids. Time: 02:13 Medications Administered Discontinued Medications Generic Name Dose Route Start Last Admin Trade Name Freq PRN Reason Stop Dose Admin Diphenhydramine HCl 25 mg 02/14/23 23:59 02/15/23 00:28 Diphenhydramine Hcl 50 Mg/Ml Vial IVPUSH 02/15/23 00:00 25 mg ONCE ONE Administration Sodium Chloride 1,000 mls @ 999 mls/hr 02/15/23 00:00 02/15/23 04:00 Ns IV 02/15/23 01:00 Infused .Q1H1M ONE Infusion Metoclopramide HCl 10 mg 02/14/23 23:59 02/15/23 00:28 Metoclopramide Hcl 10 Mg/2 Ml Vial IVPUSH 02/15/23 00:00 10 mg ONCE ONE Administration Medical Decision Making Medical Decision Making [facility] Narrative: 57-year-old female presenting to the emergency department via EMS from your [place] under [address] with complaints of nausea, vomiting, diarrhea starting today. She was seen at [facility] several days ago for similar symptoms. Had a negative workup there (see further MDM for more details). On arrival, patient mildly hypertensive at 160/79, otherwise vital signs within normal limits. Lips are cracked, with dry mucus membranes. Pt with diffuse abdominal tenderness without point TTP. Plan: Obtain [facility] records, IV fluids, Reglan 10 mg IV and Benadryl 25mg IV. Differential Diagnosis Differential Diagnoses: The differential diagnosis associated with the presentation includes Diverticulitis, Diverticulosis, SBO, gastritis, gastroenteritis, ACS-unlikely Admission/Observation Consideration of admission/observation: Escalation of care including admission/observation considered Patient would have been admitted to the hospital had her work up had any findings where hospital admission was appropriate and her clinical presentation warranted hospital admission. Lab Data [facility] Lab Attestation statement: I reviewed the patient's lab results. 02/15/23 00:18 02/15/23 00:17 Labs: Lab Results 02/15/23 02/15/23 Range/Units 00:17 00:18 WBC 9.0 (4.8-10.8) X10*3/uL RBC 4.82 (4.20-5.50) X10*6/uL Hgb 13.6 (12.0-16.0) g/dl Hct 40.2 (37.0-47.0) % MCV 83.4 (80.0-98.0) fL MCH 28.2 (27.0-33.0) pg MCHC 33.8 (31.0-35.0) g/dl RDW 14.8 (11.0-16.0) % Plt Count 237 D (160-400) X10*3/uL MPV 11.9 (9.4-12.3) fL Immature Gran % (Auto) 0.3 (0.0-0.4) % Neut % (Auto) 73.1 H (45-73) % Lymph % (Auto) 11.8 L (20-40) % [place] % (Auto) 13.5 H (2-11) % Eos % (Auto) 0.9 (0-4) % Baso % (Auto) 0.4 (0-2) % Lymph # (Auto) 1.1 L (1.2-4.9) X10*3/uL [place] # (Auto) 1.2 (0.1-1.2) X10*3/uL Eos # (Auto) 0.1 (0.0-0.4) X10*3/uL Baso # (Auto) 0.0 (0.0-0.2) X10*3/uL Abs Immat Gran (auto) 0.03 (0.00-0.03) X10*3/uL Absolute Neuts (auto) 6.6 (2.0-8.3) x10*3/uL Absolute Nucleated RBC 0.000 (0.0-0.012) X10*3/uL Nucleated RBC % (auto) 0.0 (0.0-0.2) /100WBC Sodium 139 (135-145) mmol/L Potassium 3.8 (3.3-5.1) mmol/L Chloride 103 (96-108) mmol/L Carbon Dioxide 22 (22-29) mmol/L Anion Gap 18 (12-20) BUN 14 (9-16) mg/dL Creatinine 0.81 (0.5-1.4) mg/dL Estim Creat Clear Calc 61.3 Estimated GFR > 60 Random Glucose 116 H (60-115) mg/dL Calcium 9.3 (8.4-10.2) mg/dL Magnesium 1.9 (1.6-2.6) mg/dL Total Bilirubin 0.5 (0.0-1.0) mg/dL Direct Bilirubin 0.2 (0.0-0.5) mg/dL AST 25 (5-31) U/L ALT 51 H (0-31) U/L Alkaline Phosphatase 89 (39-117) U/L Troponin I High Sens < 2.7 (<3.5-17.0) ng/L Total Protein 8.0 (6.5-8.0) g/dL Albumin 3.9 (3.5-5.0) g/dL Lipase 28 (8-78) U/L Urine Opiates Screen Not Detected (Not Detect) Urine Fentanyl Screen Not Detected (Not Detect) Ur Barbiturates Screen Not Detected (Not Detect) Ur Phencyclidine Scrn Not Detected (Not Detect) Ur Amphetamines Screen Not Detected (Not Detect) U Benzodiazepines Scrn Not Detected (Not Detect) Urine Cocaine Screen POSITIVE H (Not Detect) U Marijuana (THC) Screen Not Detected (Not Detect) Ethyl Alcohol < 10 mg/dL Influenza Type A (PCR) NEGATIVE (Negative) Influenza Type B (PCR) NEGATIVE (Negative) RSV RNA Qual (PCR) NEGATIVE (Negative) SARS-CoV-2 RNA (RT-PCR) NEGATIVE (Negative) Independent Interpretation I performed an independent interpretation of an: EKG Interpretation: EKG normal sinus rhythm at a ventricular rate of 75 beats per minute, CT interval 156, QTC 455, no ST elevation or depression. Similar appearing EKG found on [facility] medical records from February 09, 2023 External Record Review External record reviewed: Outside ED record Review of medical records from [facility]. Patient was seen at [facility] emergency department from [facility] with complaints of 4 hours of nausea, vomiting, diarrhea and abdominal cramping after drinking orange juice in the cafeteria. [facility] medical records revealing patient had mild leukocytosis at 11.6, no anemia, normal platelets. Slightly elevated troponin 9 however does not think that patient had the CS. She was improved after receiving IV fluids and Zofran. CT abd/pelvis was performed at that time which showed minimal colonic diverticulosis without evidence of diverticulitis otherwise negative Tests considered The following testing was considered but not selected: CT scan was considered however given recent CT scan without any acute findings with similar presentation, defer testing at this time. Discharge Plan Discharge Clinical Impression: Diarrhea, Nausea & vomiting Patient Disposition: Home, Self-Care Instructions: Acute Nausea and Vomiting (ED) Additional Instructions: You were seen in the emergency department for vomiting, abdominal pain and diarrhea. Your labs are reassuring. You received IV fluids, Benadryl, and Reglan in the department today which provided you with relief. Please stick to a bland diet, avoid spicy foods. Avoid products with dairy until your symptoms resolve. Diet consisting of bananas, rice, tea, toast and yogurt can help with your symptoms. Continue taking zofran as needed for your symptoms. You previously received this medication at [facility]. If any new or worsening symptoms occur, please return for re-evaluation. Prescriptions: No Action nicotine (polacrilex) 4 mg lozenge 4 mg buccal Q2-4H PRN (Reason: nicotine cravings) 30 Days Qty: 108 0RF clonidine HCl 0.2 mg Tablet 0.2 mg PO BID 30 Days Qty: 60 0RF Protocol: Hold for SBP< HOLD for SBP < : 90 fluticasone propionate 50 mcg/actuation [place],Suspension 1 spray intranasal BID 30 Days Qty: 16 0RF docusate sodium 100 mg Capsule 100 mg PO BID Qty: 0 0RF amlodipine 5 mg tablet 5 mg PO DAILY 30 Days Qty: 30 0RF lisinopril 40 mg tablet 40 mg PO DAILY 30 Days Qty: 30 0RF clonazepam 0.5 mg Tablet 0.5 mg PO BID 30 Days Qty: 60 0RF diphenhydramine HCl 25 mg tablet 25 mg PO TID PRN (Reason: insomnia/anxiety) 30 Days Qty: 90 0RF Interventions: ED Discharge Assessment Last Done: 02/15/23 05:30 Discharge Date/Time: 02/15/23 05:35
[2023-02-14 23:42] VITALS: BP 160/79; BP 160/80; PULSE 72; PULSE 90; RESP 16; TEMP 36.7; O2SAT 98; BMI 21.4
--- NOTE | 2023-02-14 23:53 | PC.NURSE ---
pt from [facility] under [address] 21; changed over by security; denies si/hi to this RN at this time however 1:1 sitter at bedside. awaiting primary eval by ed provider.
--- NOTE | 2023-02-14 23:59 | ECG_ITS ---
Test Reason : ABD PAIN Blood Pressure : / mmHG Vent. Rate : 075 BPM Atrial Rate : 075 BPM P-R Int : 156 ms QRS Dur : 088 ms QT Int : 408 ms P-R-T Axes : 063 -02 063 degrees QTc Int : 455 ms Normal sinus rhythm Possible Left atrial enlargement ) Borderline ECG When compared with ECG of 20-JUL-2022 19:36, No significant change was found Referred By: Desi Gregory Electronically Signed By:AL PALACIO MD
[2023-02-15 00:25] LABS: MANUAL DIFF FLAG NO
[2023-02-15 00:26] LABS: Basophils Percent Auto 0.4 % (0-2); Eosinophils Absolute Auto 0.1 X10*3/uL (0.0-0.4); Eosinophils Percent Auto 0.9 % (0-4); Hematocrit 40.2 % (37.0-47.0); Hemoglobin 13.6 g/dl (12.0-16.0); Imm Gran Abs Auto 0.03 X10*3/uL (0.00-0.03); Imm Gran Pct Auto 0.3 % (0.0-0.4); Lymphocytes Absolute Auto 1.1 X10*3/uL (1.2-4.9); Lymphocytes Percent Auto 11.8 % (20-40); Mean Corpuscular HGB Conc 33.8 g/dl (31.0-35.0); Mean Corpuscular Hemoglobin 28.2 pg (27.0-33.0); Mean Corpuscular Volume 83.4 fL (80.0-98.0); Mean Platelet Volume 11.9 fL (9.4-12.3); Monocytes Absolute Auto 1.2 X10*3/uL (0.1-1.2); Monocytes Percent Auto 13.5 % (2-11); Neutrophils Absolute Auto 6.6 x10*3/uL (2.0-8.3); Neutrophils Percent Auto 73.1 % (45-73); Platelet Count 237 X10*3/uL (160-400); Red Blood Count 4.82 X10*6/uL (4.20-5.50); Red Cell Distribution Width 14.8 % (11.0-16.0)
[2023-02-15] MEDS: 0.9 % Sodium Chloride 1,000 ML 999 ML IV (00:28)
[2023-02-15] MEDS: diphenhydrAMINE HCL 50 MG/ML VIAL 25 MG IVPUSH (00:28)
[2023-02-15] MEDS: Metoclopramide HCl 10 MG/2 ML VIAL IVPUSH (00:28)
[2023-02-15 00:34] LABS: Amphetamine Screen Urine Not Detected (Not Detect); Barbiturates, Urine Not Detected (Not Detect); Benzodiazepines Screen Urine Not Detected (Not Detect); Cannabinoid Screen Urine Not Detected (Not Detect); Cocaine Screen Urine POSITIVE (Not Detect); Fentanyl, urine Not Detected (Not Detect); Opiate Screen Urine Not Detected (Not Detect); Phencyclidine Screen Urine Not Detected (Not Detect)
[2023-02-15 00:47] LABS: Alanine Aminotransferase 51 U/L (0-31); Albumin Level 3.9 g/dL (3.5-5.0); Alkaline Phosphatase 89 U/L (39-117); Anion Gap 18 (12-20); Aspartate Amino Transferase 25 U/L (5-31); Bilirubin Direct 0.2 mg/dL (0.0-0.5); Bilirubin Total 0.5 mg/dL (0.0-1.0); Blood Urea Nitrogen 14 mg/dL (9-16); Calcium 9.3 mg/dL (8.4-10.2); Carbon Dioxide 22 mmol/L (22-29); Chloride 103 mmol/L (96-108); Creatinine Clr Calc Pharmacy 61.3; Estimated Glomerular Filt Rate > 60; Ethanol < 10 mg/dL; Glucose Random 116 mg/dL (60-115); Lipase 28 U/L (8-78); Magnesium 1.9 mg/dL (1.6-2.6); Potassium 3.8 mmol/L (3.3-5.1); Sodium 139 mmol/L (135-145)
[2023-02-15 00:50] LABS: Troponin-I High Sensitivity < 2.7 ng/L (<3.5-17.0)
[2023-02-15 01:03] LABS: Influenza A PCR NEGATIVE (Negative); Influenza B PCR NEGATIVE (Negative); Resp Syncy Virus RNA Qual PCR NEGATIVE (Negative); SARS COV2 PCR INHOUSE NEGATIVE (Negative)
--- NOTE | 2023-02-15 02:01 | PC.NURSE ---
pt had 2 episodes of diarrhea during time here. pt medicated per jun. labs drawn ekg obtained. ivf infusing however delay d/t pt continuing to bend arm. awaiting further orders from PA. SIMON.
[2023-02-15 05:27] VITALS: PULSE 72; RESP 16; O2SAT 100
--- NOTE | 2023-02-15 05:28 | PC.NURSE ---
pt reports n/v/abd pain improved wth medication however diarrhea persists. educated on discharge instructions to eat bland diet/increase fluids and to follow up with pcp. in agreement with d/c. d/c to [facility] via [facility] [facility].
--- NOTE | 2023-02-15 05:35 | PC.NURSE ---
attempt 2x to give report no answer.
== END 2023-02-15 05:35 | disposition home or self-care (01) ==
PROVIDERS: Physician Assistant Medical; Emergency Provider Emergency Medicine
DX: R11.2 Nausea with vomiting, unspecified (principal); R19.7 Diarrhea, unspecified; R94.31 Abnormal electrocardiogram [ECG] [EKG]; F17.210 Nicotine dependence, cigarettes, uncomplicated; Z20.822 Contact with and (suspected) exposure to COVID-19; Z20.828 Contact with and (suspected) exposure to other viral communicable diseases; Z71.6 Tobacco abuse counseling; Z79.899 Other long term (current) drug therapy
CPT/HCPCS: 0241U; 36415; 80048; 80076; 80307; 83690; 83735; 84484; 85025; 93005; 96361; 96374; 96375; 99285; J1200; J2765

== ENCOUNTER 2024-01-15 19:01 | Emergency (ER) | payer MEDICARE, SELFPAY ==
--- NOTE | ~2024-01-15 | XR_ITS ---
EXAMINATION: XR CHEST CLINICAL INFORMATION: Cough. COMPARISON: None available. TECHNIQUE: Frontal view of the chest was obtained. FINDINGS: The heart is normal in size. There is a right middle lobe infiltrate. Pneumonia is suspected. No pleural effusion or pneumothorax. No acute osseous abnormality. XR/XR chest 1V IMPRESSION: Right middle lobe pneumonia. Electronically signed by: Adiel Wright DO 01/15/2024 10:30 PM EDT
[2024-01-15 19:10] VITALS: BP 140/85; BP 146/84; PULSE 80; PULSE 84; RESP 22; TEMP 36.7; O2SAT 100; BMI 30.1
--- NOTE | 2024-01-15 19:13 | ED_ITS ---
HPI - SOB/Dyspnea General Chief Complaint: Headache Stated Complaint: SOB, +[id number], bilat wheez, hx asthma, duo neb Time Seen by Provider: 01/15/24 19:05 Source: patient, EMS and old records reviewed Mode of arrival: EMS Limitations: no limitations History of Present Illness ED Provider: KAROLYN HPI Narrative: 58 yo female with PMH of HTN, cocaine use disorder, PTSD here with c/o visiting her brother at [facility] and being exposed to another patient with COVID she tested herself monday and was positive but her symptoms of headache, cough, dyspnea did not start until yesterday. She tried motrin today without relief. She notes she has had 3 covid vaccines. She states she coughed up some dark sputum today. She has not tried anything other than motrin for her symptoms right now. MD elicited complaint: shortness of breath Pertinent past history: asthma Onset (ago): day(s) (1) Context: recent illness Timing: constant Severity: moderate Exacerbating factors: coughing Relieving factors: rest and bronchodilators Known history of: asthma Associated symptoms: cough, wheezing and sputum production Treatment prior to arrival: bronchodilator Related Data Previous Rx's ?Medication ?Instructions ?Recorded amlodipine 5 mg tablet 5 mg PO DAILY 30 days #30 tabs 07/26/22 clonazepam 0.5 mg tablet 0.5 mg PO BID 30 days #60 tabs 07/26/22 clonidine HCl 0.2 mg tablet 0.2 mg PO BID 30 days #60 tabs 07/26/22 diphenhydramine HCl 25 mg tablet 25 mg PO TID PRN insomnia/anxiety 07/26/22 30 days #90 tabs docusate sodium 100 mg capsule 100 mg PO BID #0 caps 07/26/22 fluticasone propionate 50 1 spray intranasal BID 30 days #16 07/26/22 mcg/actuation nasal grams spray,suspension lisinopril 40 mg tablet 40 mg PO DAILY 30 days #30 tabs 07/26/22 nicotine (polacrilex) 4 mg buccal 4 mg buccal Q2-4H PRN nicotine 07/26/22 lozenge cravings 30 days #108 ea albuterol sulfate 90 mcg/actuation 2 puff inhalation QID PRN 01/15/24 aerosol inhaler shortness of breath or wheezing #6.7 grams levofloxacin 750 mg tablet 750 mg PO Q24H #6 tabs 01/15/24 prednisone 20 mg tablet 40 mg (2 x 20 mg) PO DAILY 5 days 01/15/24 #10 tabs Allergies Allergy/AdvReac Type Severity Reaction Status Date / Time amoxicillin [AMOXICILLIN] Allergy Unknown UNKNOWN Verified 01/15/24 19:18 ampicillin [AMPICILLIN] Allergy Unknown UNKNOWN Verified 01/15/24 19:18 erythromycin base Allergy Unknown UNKNOWN Verified 01/15/24 19:18 [ERYTHROMYCIN BASE] penicillin G [PENICILLIN G] Allergy Unknown UNKNOWN Verified 01/15/24 19:18 shellfish derived Allergy Unknown UNKNOWN Verified 01/15/24 19:18 [SHELLFISH DERIVED] Sulfa (Sulfonamide Allergy Unknown UNKNOWN Verified 01/15/24 19:18 Antibiotics) [SULFA (SULFONAMIDE ANTIBIOTICS)] sulfamethoxazole Allergy Unknown UNKNOWN Verified 01/15/24 19:18 [From BACTRIM] trimethoprim [From BACTRIM] Allergy Unknown UNKNOWN Verified 01/15/24 19:18 Review of Systems 2 Review of Systems: Constitutional : No Fever, No Chills ENT/Mouth : No Hoarseness, No sore throat, No Rhinorrhea Eyes: No Redness, No Discharge, No Vision Changes Cardiovascular : No Chest Pain, positive SOB, positive Dyspnea on Exertion, No Edema Respiratory : positive Cough, posSputum, positive Wheezing, Gastrointestinal : No Nausea, No Vomiting, No Diarrhea, No abdominal Pain Genitourinary : No Dysuria, No Hematuria Musculoskeletal : No joint pain, pos Myalgias Skin : No rash Neuro : No Weakness, No Numbness, pos Headache Psych : No anxiety, depression Heme/Lymph: No Bruising, No Bleeding Endocrine : No Polyuria, No Polydipsia All other systems reviewed and are negative PMFSH Past Medical History Attestation statement: The following information was validated with the patient. Source: old records reviewed Medical History PTSD (post-traumatic stress disorder) Cocaine use disorder Social History Social History Household Members: Friend(s) Housing: Apartment Do you presently have visiting nurse or other home services: No Alcohol intake: current Alcohol intake frequency: a few times a week Patient Tobacco Use Status: Current everyday Tobacco user Tobacco use type: Cigarette Cigarette Packs Per Day: 1 Cigarettes Per Day: 20.0 Smoked in Last 30 Days: No e-Cigarette/Vaping Use: Currently Using Use of substances other than those prescribed or required for medical reasons: No Substance Use Type: Marijuana Advance Directives: No Advance Directives Information Provided: No Do you have a plan to hurt others: No Plan Patient : No service: No Sexual orientation: Straight/Heterosexual Physical Exam 2 Vital Signs: Vital Signs: Last Vital Signs Temp 98.0 F 01/15/24 20:03 Pulse 88 01/15/24 20:03 Resp 22 H 01/15/24 20:03 BP 157/80 H 01/15/24 20:03 Pulse Ox 96 01/15/24 20:03 O2 Del Method Room Air 01/15/24 19:19 BMI result Body Mass Index 30.1 Appearance: Alert. Oriented X3. No acute distress. Eyes: Pupils equal, round and reactive to light. ENT: Pharynx normal. Neck: Normal inspection. Neck supple. no meningeal signs CVS: Normal heart rate and rhythm. Pulses normal. Respiratory: No respiratory distress. Breath sounds bases diminished but no overt wheezes noted after duoneb on arrival Abdomen: Soft and nontender. Skin: Skin warm and dry. Normal skin color. Normal skin turgor. Extremities: No lower extremity edema. No calf ttp Neuro: Oriented X 3. No motor deficit. No sensory deficit. Medications Administered Discontinued Medications Generic Name Dose Route Start Last Admin Trade Name Christophq PRN Reason Stop Dose Admin Acetaminophen 975 mg 01/15/24 19:30 01/15/24 19:50 Acetaminophen 325 Mg Tablet PO 01/15/24 19:31 975 mg ONCE ONE Administration Guaifenesin/Codeine Phosphate 5 ml 01/15/24 19:30 01/15/24 19:50 Guaifen/Codeine Sf 200/20/10ml 10 Ml Liquid PO 01/15/24 19:31 5 ml ONCE ONE Administration Methylprednisolone Sodium Succinate 60 mg 01/15/24 19:30 01/15/24 19:50 Methylprednisolone Sod Succ 125 Mg/2 Ml Vial IVPUSH 01/15/24 19:31 60 mg ONCE ONE Administration Medical Decision Making Medical Decision Making MDM Narrative: 58 yo female with PMH of HTN, cocaine use disorder, PTSD here with c/o headaches, cough, not feeling well after COVID dx on Monday but symptoms started yesterday she has had 3 COVID vaccines in the past at this time will need basic labs, COVID swab, CXR, EKG, IV steroids given hx of asthma and need for duoneb en route. She is not hypoxia here. PO tylenol for headache. She has no CP at this time. No neuro deficits and she is neuro intact doubt ICH or SAH/CV thrombosis. Differential Diagnosis Differential Diagnoses: The differential diagnosis associated with the presentation includes COVID, viral syndrome, asthma, bronchitis Admission/Observation Consideration of admission/observation: Escalation of care including admission/observation considered no hypoxia states she feels much better at this time anticipate DC home. Lab Data MDM Lab Attestation statement: I reviewed the patient's lab results. 01/15/24 20:11 01/15/24 20:11 Labs: Lab Results 01/15/24 Range/Units 20:11 WBC 6.1 (4.8-10.8) X10*3/uL RBC 4.18 L (4.20-5.50) X10*6/uL Hgb 11.5 L (12.0-16.0) g/dl Hct 35.5 L (37.0-47.0) % MCV 84.9 (80.0-98.0) fL MCH 27.5 (27.0-33.0) pg MCHC 32.4 (31.0-35.0) g/dl RDW 15.6 (11.0-16.0) % Plt Count 287 (160-400) X10*3/uL MPV 9.9 (9.4-12.3) fL Immature Gran % (Auto) 0.5 H (0.0-0.4) % Neut % (Auto) 47.4 (45-73) % Lymph % (Auto) 32.9 (20-40) % Steele % (Auto) 13.9 H (2-11) % Eos % (Auto) 4.8 H (0-4) % Baso % (Auto) 0.5 (0-2) % Lymph # (Auto) 2.0 (1.2-4.9) X10*3/uL Steele # (Auto) 0.8 (0.1-1.2) X10*3/uL Eos # (Auto) 0.3 (0.0-0.4) X10*3/uL Baso # (Auto) 0.0 (0.0-0.2) X10*3/uL Abs Immat Gran (auto) 0.03 (0.00-0.03) X10*3/uL Absolute Neuts (auto) 2.9 (2.0-8.3) x10*3/uL Absolute Nucleated RBC 0.000 (0.0-0.012) X10*3/uL Nucleated RBC % (auto) 0.0 (0.0-0.2) /100WBC D-Dimer High Sensitivty < 150 NG/ML Sodium 142 (135-145) mmol/L Potassium 4.0 (3.3-5.1) mmol/L Chloride 111 H (96-108) mmol/L Carbon Dioxide 22 (22-29) mmol/L Anion Gap 13 (12-20) BUN 14 (9-16) mg/dL Creatinine 1.29 (0.5-1.4) mg/dL Estim Creat Clear Calc 45.5 Estimated GFR 43 Random Glucose 117 H (60-115) mg/dL Calcium 9.5 (8.4-10.2) mg/dL Magnesium 2.1 (1.6-2.6) mg/dL Total Bilirubin 0.4 (0.0-1.0) mg/dL Direct Bilirubin 0.1 (0.0-0.5) mg/dL AST 16 (5-31) U/L ALT 19 (0-31) U/L Alkaline Phosphatase 99 (39-117) U/L Troponin I High Sens < 2.7 (<3.5-17.0) ng/L B-Natriuretic Peptide 14 (<100) pg/mL Total Protein 8.2 H (6.5-8.0) g/dL Albumin 4.1 (3.5-5.0) g/dL COVID-19 (MELVIN) Negative (Negative) COVID-19 Clin Com See Note Independent Interpretation I performed an independent interpretation of an: EKG and Plain X-Ray (small opacity R middle lobe will start on oral abx) Interpretation: Rate: 84 Rhythm: NSR [place]: left Normal P waves. Normal LACHO. Normal QRS complex. ST T wave : normal no JJ, poor R wave progression, inverted t waves III qT 479C: prior studies: no change from priors The study has been interpreted contemporaneously by me. . Radiology Impression Discussion of test interpretation with radiology: I have reviewed the radiologist's reading. Independent Historian Clinical information obtained from an independent historian. History obtained from or confirmed by: EMS External Record Review External record reviewed: Office record Prescription Management I considered prescription management with: Antibiotic and Other Discharge Plan Discharge Clinical Impression: Acute viral syndrome, Pneumonia Patient Disposition: Home, Self-Care Instructions: Community Acquired Pneumonia (ED), Pneumonia (ED) Additional Instructions: return for worsening symptoms or concerns use your rescue inhaler and finish antibiotics return for worsening symptoms of difficulty breathing, pain, fevers, confusion or any other concerns no strenuous activity while on antibiotics it can affect your tendons covid test in ED is negative REPEAT CHEST XRAY 2 WEEKS AFTER YOU FINISH ANTIBIOTICS TO MAKE SURE IT IS IMPROVED AND CLEARED UP Prescriptions: New prednisone 20 mg tablet 40 mg PO DAILY 5 Days Qty: 10 0RF albuterol sulfate 90 mcg/actuation HFA aerosol inhaler 2 puff inhalation QID PRN (Reason: shortness of breath or wheezing) Qty: 6.7 0RF levofloxacin 750 mg tablet 750 mg PO Q24H Qty: 6 0RF No Action nicotine (polacrilex) 4 mg lozenge 4 mg buccal Q2-4H PRN (Reason: nicotine cravings) 30 Days Qty: 108 0RF clonidine HCl 0.2 mg Tablet 0.2 mg PO BID 30 Days Qty: 60 0RF Protocol: Hold for SBP< HOLD for SBP < : 90 fluticasone propionate 50 mcg/actuation [place],Suspension 1 spray intranasal BID 30 Days Qty: 16 0RF docusate sodium 100 mg Capsule 100 mg PO BID Qty: 0 0RF amlodipine 5 mg tablet 5 mg PO DAILY 30 Days Qty: 30 0RF lisinopril 40 mg tablet 40 mg PO DAILY 30 Days Qty: 30 0RF clonazepam 0.5 mg Tablet 0.5 mg PO BID 30 Days Qty: 60 0RF diphenhydramine HCl 25 mg tablet 25 mg PO TID PRN (Reason: insomnia/anxiety) 30 Days Qty: 90 0RF Print Language: Surinamese
[2024-01-15 19:19] VITALS: BP 140/85; PULSE 84; RESP 22; TEMP 36.7; O2SAT 100
--- NOTE | 2024-01-15 19:31 | ECG_ITS ---
Test Reason : DYSPNEA Blood Pressure : / mmHG Vent. Rate : 084 BPM Atrial Rate : 084 BPM P-R Int : 180 ms QRS Dur : 084 ms QT Int : 406 ms P-R-T Axes : 035 -14 020 degrees QTc Int : 479 ms Normal sinus rhythm Possible Left atrial enlargement Anterior infarct , age undetermined Abnormal ECG When compared with ECG of 15-FEB-2023 00:44, No significant change was found Referred By: Martha Krishnamurthy Electronically Signed By:JOSE ANDRADE
[2024-01-15] MEDS: Acetaminophen 325 MG TABLET 975 MG PO (19:50)
[2024-01-15] MEDS: guaiFEN/Codeine SF 200/20/10ML 10 ML LIQUID 5 ML PO (19:50)
[2024-01-15] MEDS: methylPREDNISolone Sod Succ 125 MG/2 ML VIAL 60 MG IVPUSH (19:50)
[2024-01-15 20:03] VITALS: BP 157/80; PULSE 88; RESP 22; TEMP 36.7; O2SAT 96
[2024-01-15 20:16] LABS: MANUAL DIFF FLAG NO
[2024-01-15 20:20] LABS: Basophils Percent Auto 0.5 % (0-2); Eosinophils Absolute Auto 0.3 X10*3/uL (0.0-0.4); Eosinophils Percent Auto 4.8 % (0-4); Hematocrit 35.5 % (37.0-47.0); Hemoglobin 11.5 g/dl (12.0-16.0); Imm Gran Abs Auto 0.03 X10*3/uL (0.00-0.03); Imm Gran Pct Auto 0.5 % (0.0-0.4); Lymphocytes Percent Auto 32.9 % (20-40); Mean Corpuscular HGB Conc 32.4 g/dl (31.0-35.0); Mean Corpuscular Hemoglobin 27.5 pg (27.0-33.0); Mean Corpuscular Volume 84.9 fL (80.0-98.0); Mean Platelet Volume 9.9 fL (9.4-12.3); Monocytes Absolute Auto 0.8 X10*3/uL (0.1-1.2); Monocytes Percent Auto 13.9 % (2-11); Neutrophils Absolute Auto 2.9 x10*3/uL (2.0-8.3); Neutrophils Percent Auto 47.4 % (45-73); Platelet Count 287 X10*3/uL (160-400); Red Blood Count 4.18 X10*6/uL (4.20-5.50); Red Cell Distribution Width 15.6 % (11.0-16.0); White Blood Count 6.1 X10*3/uL (4.8-10.8)
[2024-01-15 20:26] LABS: D Dimer High Sensitivity < 150 NG/ML
[2024-01-15 20:28] LABS: COVID-19 Test Negative (Negative); IDNOW Serial# 08D9AD1C
[2024-01-15 20:33] LABS: Alanine Aminotransferase 19 U/L (0-31); Albumin Level 4.1 g/dL (3.5-5.0); Alkaline Phosphatase 99 U/L (39-117); Anion Gap 13 (12-20); Aspartate Amino Transferase 16 U/L (5-31); Bilirubin Direct 0.1 mg/dL (0.0-0.5); Bilirubin Total 0.4 mg/dL (0.0-1.0); Blood Urea Nitrogen 14 mg/dL (9-16); Calcium 9.5 mg/dL (8.4-10.2); Carbon Dioxide 22 mmol/L (22-29); Chloride 111 mmol/L (96-108); Creatinine Clr Calc Pharmacy 45.5; Estimated Glomerular Filt Rate 43; Glucose Random 117 mg/dL (60-115); Magnesium 2.1 mg/dL (1.6-2.6); Sodium 142 mmol/L (135-145); Total Protein 8.2 g/dL (6.5-8.0)
[2024-01-15 20:38] LABS: B Type Natriuretic Peptide 14 pg/mL (<100)
[2024-01-15 20:46] LABS: Troponin-I High Sensitivity < 2.7 ng/L (<3.5-17.0)
[2024-01-15] MEDS: levoFLOXacin 750 MG TABLET PO (21:31)
[2024-01-15 21:45] VITALS: BP 160/74; PULSE 87; RESP 18; TEMP 36.6; O2SAT 96
== END 2024-01-15 21:48 | disposition home or self-care (01) ==
PROVIDERS: Emergency Provider Emergency Medicine
DX: J18.9 Pneumonia, unspecified organism (principal); B34.9 Viral infection, unspecified; U07.1 COVID-19; R06.02 Shortness of breath; R05.9 Cough, unspecified; Z79.899 Other long term (current) drug therapy
CPT/HCPCS: 36415; 71045; 80048; 80076; 83735; 83880; 84484; 85025; 85379; 87635; 93005; 96374; 99284; 99285; J2919